=== PATIENT | male | born 1940 | race Caucasian/White ===

== ENCOUNTER 2019-12-02 18:53 | Emergency (ER) | payer MEDICARE ==
[~2019-12-02] VITALS: Ht 172.7 cm; Wt 74.9 kg
[2019-12-02] MEDS ORDERED: SODIUM CHLORIDE FLUSH 10ML SYR IVF ONE (19:30)
[2019-12-02] MEDS ORDERED: PLEASE ENTER ALLERGIES MC SCH (19:30)
[2019-12-02 19:43] LABS: BASOPHILS % (AUTO) 0 % (0-1); EOSINOPHILS # (AUTO) 0.01 x10^3/uL (0-0.4); EOSINOPHILS % (AUTO) 0 % (1-7); LYMPHOCYTES # (AUTO) 0.54 x10^3/uL (1-3.4); LYMPHOCYTES % (AUTO) 4 % (22-44); MD NO; MEAN CORPUSCULAR HEMOGLOBIN 31.7 pg (27.5-34.5); MEAN CORPUSCULAR HGB CONC 33.8 g/dL (33.2-36.2); MEAN CORPUSCULAR VOLUME 93.6 fL (81-97); MEAN PLATELET VOLUME 8.5 fL (7.4-10.4); MONOCYTES # (AUTO) 0.59 x10^3/uL (0.2-0.8); MONOCYTES % (AUTO) 5 % (2-9); NEUTROPHILS % (AUTO) 91 % (42-75); PLATELET COUNT 143 x10^3/uL (130-400); RED BLOOD COUNT 4.48 x10^6/uL (4.38-5.82); RED CELL DISTRIBUTION WIDTH 13.7 % (9.4-14.8)
[2019-12-02 19:50] LABS: ALANINE AMINOTRANSFERASE 20 U/L (12-78); ANION GAP 7 mmol/L (5-15); CHLORIDE 103 mmol/L (98-107); CREATININE 0.97 mg/dL (0.7-1.3)
--- NOTE | 2019-12-02 19:50 | NUR ---
PT REPORTS LEFT UPPER ABD PAIN SINCE THIS AM. NO ACUTE DISTRESS NOTED. CALL LIGHT IN PLACE. FAMILY AT BEDSIDE. CALL LIGHT IN PLACE. WILL CONTINUE TO MONITOR.
[2019-12-02 19:53] LABS: ALKALINE PHOSPHATASE 57 U/L (45-117); BILIRUBIN,TOTAL 1.4 mg/dL (0.2-1.0); TOTAL PROTEIN 7.3 g/dL (6.4-8.2)
[2019-12-02] MEDS ORDERED: OMNIPAQUE 350 MG/ML, 100ML BOTTLE ONE (20:00)
--- NOTE | 2019-12-02 20:19 | NUR ---
Break RN: Patient returned from CT. Resting in [facility] with no complaints.
--- NOTE | 2019-12-02 20:30 | NUR ---
Urine collected and sent to lab.
[2019-12-02 20:39] LABS: MICROSCOPIC NOT IND
[2019-12-02 20:40] LABS: CULTURE INDICATED? NO
[2019-12-02] MEDS ORDERED: metroNIDAZOLE 500 MG TABLET ONE (20:57)
[2019-12-02] MEDS ORDERED: CEFDINIR 300 MG CAPSULE ONE (20:57)
[2019-12-02] MEDS ORDERED: metroNIDAZOLE 500 MG TABLET PO ONE (21:00)
[2019-12-02] MEDS ORDERED: CEFDINIR 300 MG CAPSULE PO ONE (21:00)
[2019-12-02] MEDS ORDERED: HYDROcodone/APAP 5/325 TABLET ONE (21:05)
[2019-12-02] MEDS ORDERED: HYDROcodone/APAP 5/325 TABLET PO ONE (21:30)
[2019-12-02 21:35] VITALS: BP 113/61
--- NOTE | 2019-12-02 21:37 | NUR ---
KATLYN CORDOVA AWARE OF VS AT TIME OF DISCHARGE. PROVIDER OKAY WITH VS. PT REPORTS HE IS READY TO GO HOME AND WANTS TO LEAVE. PT DISCHARGED.
== END 2019-12-02 21:39 | disposition home or self-care (01) ==
LOC: ED 20:42
DX: K57.32 Diverticulitis of large intestine without perforation or abscess without bleeding (principal); Z90.89 Acquired absence of other organs; R00.0 Tachycardia, unspecified
CPT/HCPCS: 36415; 74177; 80053; 81003; 83690; 85025; 93005; 99284; Q9967